=== PATIENT | male | born 1980 | race Caucasian/White ===

== ENCOUNTER 2019-01-30 23:43 | Emergency (ER) | payer BC ==
[2019-01-31] MEDS ORDERED: SODIUM CHLORIDE 0.9% 1,000 ML IV ONE (00:21)
[2019-01-31] MEDS ORDERED: IPRATROPIUM/ALBUTEROL 3 ML NEB INH STA (00:32)
--- NOTE | 2019-01-31 00:42 | XRAY Report ---
Reason: cough, wheezing Procedure Date: 01/31/2019 Accession Number: [id number] / [id number] Procedure: XR - Chest 2 View X-Ray CPT Code: 12938 Final Report FULL RESULT: EXAM: CHEST RADIOGRAPHY EXAM DATE: 01/31/2019 12:37 AM. CLINICAL HISTORY: Cough, wheezing. COMPARISON: None. TECHNIQUE: 2 views. FINDINGS: The mediastinal and cardiac silhouettes are normal. The lungs are clear. No pleural effusion or pneumothorax is seen. The osseous structures are intact. IMPRESSION: Clear lungs. RADIA
[2019-01-31] MEDS ORDERED: OXYMETAZOLINE HCL 100 SPRAYS BOTTLE NAS STA (00:43)
[2019-01-31] MEDS ORDERED: IBUPROFEN 600 MG TABLET PO STA (00:43)
--- NOTE | 2019-01-31 00:53 | ED Physician Documentation ---
PD HPI URI - Stated complaint Stated Complaint: COUGH/WHEEZING - Chief complaint Chief Complaint: Resp - History obtained from History obtained from: Patient - History of Present Illness Timing - onset: How many weeks ago (2) Timing duration: Weeks (2) Timing details: Gradual onset Severity Comments: moderate Associated symptoms: Nasal congestion, Sinus pain, Dry cough, Other (wheezing). No: Fever, Chills, Sore throat, Productive cough, Chest pain, Dyspnea, NVD, Bilateral edema, Unilateral edema Contributing factors: Other (none). No: Immunocompromised, Unimmunized Improves by: Nothing Worsened by: Other (nothing) Similar symptoms before: Diagnosis (seen by his doctor, diagnosed with pneumonia clinically (pt did not get an xray) and was given a round of antibiotics (azithromycin) finished that a week ago but cough and wheezing persist) Recently seen: Clinic - Treatment prior to arrival Treatment prior to arrival: he has an albuterol inhaler at home but no spacer which he tried. Review of Systems Ten Systems: 10 systems reviewed and negative Constitutional: reports: Fever Eyes: reports: Reviewed and negative Ears: reports: Reviewed and negative Nose: reports: Congestion. denies: Rhinorrhea / runny nose Throat: denies: Sore throat Cardiac: denies: Chest pain / pressure, Palpitations, Pedal edema, Calf pain Respiratory: reports: Cough, Wheezing. denies: Dyspnea, Hemoptysis GI: denies: Abdominal Pain, Nausea, Vomiting, Diarrhea : reports: Reviewed and negative Skin: reports: Reviewed and negative Musculoskeletal: reports: Reviewed and negative. denies: Extremity pain, Extremity swelling Neurologic: reports: Reviewed and negative Endocrine: reports: Reviewed and negative Immunocompromised: reports: Reviewed and negative PD PAST MEDICAL HISTORY - Past Medical History Past Medical History: Yes Respiratory: Sleep apnea - Past Surgical History Past Surgical History: Yes Ortho: Carpal Tunnel surgery, Other - Allergies Allergies/Adverse Reactions: Allergies Allergy/AdvReac Type Severity Reaction Status Date / Time No Known Drug Allergies Allergy Verified 01/30/19 23:46 - Social History Does the pt smoke?: No Smoking Status: Never smoker Does the pt drink ETOH?: No Does the pt have substance abuse?: No - Immunizations Immunizations are current?: Yes - POLST Patient has POLST: No PD ED PE NORMAL - Vitals Vital signs reviewed: Yes - General General: Alert and oriented X 3, No acute distress, Well developed/nourished - HEENT HEENT: Atraumatic, PERRL, Ears normal, Moist mucous membranes, Pharynx benign, Dentition benign - Neck Neck: Supple, no meningeal sign, No JVD - Cardiac Cardiac: RRR, No murmur, No gallop, No rub - Respiratory Respiratory: No respiratory distress - Abdomen Abdomen: Soft, Non tender, Non distended - Male Male : Deferred - Rectal Rectal: Deferred - Derm Derm: Normal color, Warm and dry, No rash - Extremities Extremities: No deformity, No tenderness to palpate, Normal ROM s pain, No edema - Neuro Neuro: Alert and oriented X 3 Eye Opening: Spontaneous Motor: Obeys Commands Verbal: Oriented GCS Score: 15 - Psych Psych: Normal mood, Normal affect PD ED PE EXPANDED - HEENT HEENT: Right maxillary sinus TTP, Left maxillary sinus TTP, Nasal congestion - Respiratory Respiratory: Wheezing (mild expiratoy wheeze ), Left upper lobe. No: Distress, Labored, Stridor, Gasping Results - Vitals Vitals: Vital Signs - 24 hr 01/30/19 01/31/19 01/31/19 23:46 01:00 01:11 Temperature 98.2 C H 36.9 C Heart Rate 74 71 81 Respiratory 16 16 16 Rate Blood Pressure 153/65 H 157/87 H O2 Saturation 96 95 Oxygen O2 Source Room air - Labs Labs: Laboratory Tests 01/31/19 01/31/19 00:45 00:45 WBC 8.6 RBC 5.48 Hgb 14.7 Hct 44.7 MCV 81.6 MCH 26.8 L MCHC 32.9 RDW 12.6 Plt Count 210 MPV 9.8 Neut # (Auto) 5.3 Lymph # (Auto) 2.3 Emanuel # (Auto) 0.7 Eos # (Auto) 0.3 Baso # (Auto) 0.1 Absolute Nucleated RBC 0.00 Nucleated RBC % 0.0 Sodium 137 Potassium 3.8 Chloride 103 Carbon Dioxide 27 Anion Gap 7.0 BUN 13 Creatinine 1.0 Estimated GFR (MDRD) 84 L Glucose 99 Calcium 9.1 sanna labs - Rads (name of study) CXR Radiology: Final report received (negative for acute abnormality ), EMP read contemporaneously, See rad report PD MEDICAL DECISION MAKING - ED course Complexity details: reviewed results, re-evaluated patient, considered differential, d/w patient ED course: 38 y/o M well appearing with reported cough, wheezing. Has a very mild wheeze here but most symptoms consistent with sinusitis. his labs and imaging here is negative. No leukocytosis and no signs of pneumonia on cxr or exam. He was given a neb here with improvement. No indication for antibiotics at this time. this is likely ongoing bronchitis. Continue supportive care at home. Pt was given a spacer for his inhaler. He is stable for discharge with outptf/u. Departure - Departure Disposition: Home, Self Care Clinical Impression: Bronchitis Sinusitis Qualifiers: Sinusitis location: unspecified location Chronicity: subacute Qualified Code(s): J01.90 - Acute sinusitis, unspecified Condition: Stable Record reviewed to determine appropriate education?: Yes Instructions: Bronchitis Acute Dc, Inhaler W Spacer Follow-Up: your, doctor [Other] Comments: You were evaluated today for a cough and wheezing as well as congestion and a headache. Your symptoms are likely due to a viral illness. There is no evidence of pneumonia on your chest xray and your blood counts do not suggest a bacterial infection. Coughing and wheezing with bronchitis can last several weeks or even a couple of months. You do have some mild wheezing here today and should use your inhaler with the spacer provided as needed for cough and wheezing. You can try using honey for your cough as this is been demonstrated to help with cough symptoms more than over the counter cough syrups. Follow up with your doctor if your symptoms persist. Discharge Date/Time: 01/31/19 01:21
[2019-01-31 00:57] LABS: BASOPHILS # (AUTO) 0.1 10^3/uL (0.0-0.1); BASOPHILS % (AUTO) 0.6 %; EOSINOPHILS # (AUTO) 0.3 10^3/uL (0.0-0.7); EOSINOPHILS % (AUTO) 3.6 %; HGB - HEMOGLOBIN 14.7 g/dL (14.0-18.0); LYMPHOCYTES # (AUTO) 2.3 10^3/uL (1.5-3.5); LYMPHOCYTES % (AUTO) 26.2 %; MEAN CORPUSCULAR HEMOGLOBIN 26.8 pg (27.0-31.0); MEAN CORPUSCULAR HGB CONC 32.9 g/dL (32.0-36.0); MEAN CORPUSCULAR VOLUME 81.6 fL (80.0-94.0); MEAN PLATELET VOLUME 9.8 fL (7.4-11.4); MONOCYTES # (AUTO) 0.7 10^3/uL (0.0-1.0); MONOCYTES % (AUTO) 7.7 %; NEUTROPHILS # (AUTO) 5.3 10^3/uL (1.5-6.6); NEUTROPHILS % (AUTO) 61.6 %; PLT - PLATELET COUNT 210 10^3/uL (130-450); RED BLOOD COUNT 5.48 10^6/uL (4.70-6.10); RED CELL DISTRIBUTION WIDTH 12.6 % (12.0-15.0); WHITE BLOOD COUNT 8.6 x10^3/uL (4.8-10.8)
[2019-01-31 01:04] LABS: CALCIUM 9.1 mg/dL (8.5-10.3)
[2019-01-31 01:12] VITALS: BP 157/87
== END 2019-01-31 01:21 | disposition home or self-care (01) ==
LOC: ED 23:43
DX: J40 Bronchitis, not specified as acute or chronic (principal); J01.90 Acute sinusitis, unspecified
CPT/HCPCS: 36415; 71046; 80048; 85025; 94640; 99281; 99284; A9270

== ENCOUNTER 2019-08-06 17:48 | Emergency (ER) | payer BC ==
[2019-08-06 17:57] VITALS: BP 148/110
--- NOTE | 2019-08-06 18:41 | ED Physician Documentation ---
History of Present Illness - Stated complaint Stated Complaint: fever - Chief complaint Chief Complaint: Fever - History obtained from History obtained from: Patient - History of Present Illness Timing: Today Pain level max: 0 Pain level now: 0 - Additonal information Additional information: 39-year-old male with subjective fever today at home. He states that he felt fatigued as well. No cough. No congestion. Some body aches. Nothing makes it better or worse. He is concerned about possible coronavirus. No shortness of breath. No abdominal pain. No urinary symptoms. No sore throat. Review of Systems Constitutional: reports: Fever Nose: denies: Rhinorrhea / runny nose, Congestion GI: denies: Vomiting, Diarrhea : denies: Dysuria Skin: denies: Rash Musculoskeletal: denies: Neck pain, Back pain Neurologic: denies: Headache PD PAST MEDICAL HISTORY - Past Medical History Past Medical History: Yes Respiratory: Sleep apnea - Past Surgical History Past Surgical History: Yes Ortho: Carpal Tunnel surgery, Other - Allergies Allergies/Adverse Reactions: Allergies Allergy/AdvReac Type Severity Reaction Status Date / Time No Known Drug Allergies Allergy Verified 08/06/19 17:52 - Social History Does the pt smoke?: No Smoking Status: Never smoker Does the pt drink ETOH?: No Does the pt have substance abuse?: No - Immunizations Immunizations are current?: Yes - POLST Patient has POLST: No PD ED PE NORMAL - Vitals Vital signs reviewed: Yes - General General: Alert and oriented X 3, No acute distress, Well developed/nourished - HEENT HEENT: PERRL, Ears normal, Moist mucous membranes, Pharynx benign - Neck Neck: Supple, no meningeal sign, No adenopathy - Cardiac Cardiac: RRR, Strong equal pulses - Respiratory Respiratory: No respiratory distress, Clear bilaterally - Abdomen Abdomen: Soft, Non tender, Non distended - Back Back: No CVA TTP - Derm Derm: Warm and dry, No rash - Extremities Extremities: No edema - Neuro Neuro: Alert and oriented X 3 - Psych Psych: Normal mood, Normal affect Results - Vitals Vitals: Vital Signs - 24 hr 08/06/19 17:52 Temperature 36.9 C Heart Rate 90 Respiratory 16 Rate Blood Pressure 148/110 H O2 Saturation 97 Oxygen O2 Source Room air PD MEDICAL DECISION MAKING - ED course Complexity details: considered differential, d/w patient ED course: Patient is well-appearing, nontoxic. Afebrile. Coronavirus testing sent. No evidence of pneumonia. No evidence of sepsis. No evidence of strep pharyngitis. No evidence of otitis media. No evidence of meningitis. Patient counseled regarding signs and symptoms for which I believe and urgent re- evaluation would be necessary. Patient with good understanding of and agreement to plan and is comfortable going home at this time This document was made in part using voice recognition software. While efforts are made to proofread this document, sound alike and grammatical errors may occur. Departure - Departure Disposition: Home, Self Care Clinical Impression: Viral syndrome Fever Qualifiers: Fever type: unspecified Qualified Code(s): R50.9 - Fever, unspecified Condition: Good Instructions: ED Viral Syndrome Follow-Up: Your,doctor in 1 week [Other] Comments: Return if you worsen. Follow-up with your doctor as needed. You can use Motrin and/or Tylenol as needed for fever. Drink plenty of fluids and rest. Discharge Date/Time: 08/06/19 18:52
== END 2019-08-06 18:52 | disposition home or self-care (01) ==
LOC: ED 17:48
DX: B34.9 Viral infection, unspecified (principal); Z20.828 Contact with and (suspected) exposure to other viral communicable diseases
CPT/HCPCS: 81599; 99283; 99284